=== PATIENT | female | born 1995 | race Caucasian/White ===

== ENCOUNTER 2020-07-21 21:11 | Emergency (ER) | payer SELFPAY ==
[~2020-07-21] VITALS: Ht 167.6 cm; Wt 47.0 kg
[2020-07-21 21:21] VITALS: BP 118/89
== END 2020-07-21 23:30 | disposition left against medical advice (07) ==
LOC: ER 21:11
DX: Z53.21 Procedure and treatment not carried out due to patient leaving prior to being seen by health care provider (principal)